=== PATIENT | female | born 1955 | race African-American/Black ===

== ENCOUNTER 2023-01-31 18:42 | Emergency (ER) | payer MEDICARE, MEDICAID ==
[~2023-01-31] VITALS: Ht 165.1 cm; Wt 81.0 kg
[2023-01-31 18:45] VITALS: BP 119/79; O2SAT 98
[2023-01-31] MEDS ORDERED: GUAI-453 MT (21:35)
[2023-01-31 21:45] VITALS: PULSE 95; RESP 18; TEMP 98.6
== END 2023-01-31 21:47 | disposition home or self-care (01) ==
LOC: ER 18:42
DX: J02.9 Acute pharyngitis, unspecified (principal); E11.9 Type 2 diabetes mellitus without complications
CPT/HCPCS: 71045; 99283

== ENCOUNTER 2025-06-12 08:38 | Emergency (ER) | payer MEDICARE, MEDICAID ==
[~2025-06-12] VITALS: Ht 165.1 cm; Wt 79.0 kg
[~2025-06-12 08:38] MED LIST: GUAI-453 MT
[2025-06-12 08:50] VITALS: O2SAT 99
[2025-06-12 09:47] VITALS: BP 155/74; PULSE 81; RESP 17; TEMP 37; O2SAT 99
== END 2025-06-12 09:47 | disposition home or self-care (01) ==
LOC: ER 08:38
DX: M79.602 Pain in left arm (principal); E11.9 Type 2 diabetes mellitus without complications; M54.2 Cervicalgia
CPT/HCPCS: 99282